=== PATIENT | male | born 1965 | race African-American/Black ===

== ENCOUNTER 2021-02-20 14:41 | Outpatient (CLI) | payer OTHER ==
[2021-02-21 01:55] LABS: SARS-CoV-2 PCR by NAA Not Detected (NotDetected)
== END 2021-02-20 14:42 | disposition home or self-care (01) ==
LOC: CSHLAB 14:41
PROVIDERS: ATTEND Internal Medicine Gastroenterology
DX: Z20.822 Contact with and (suspected) exposure to COVID-19 (principal); Z12.11 Encounter for screening for malignant neoplasm of colon
CPT/HCPCS: 87635; U0003; U0005

== ENCOUNTER 2021-02-22 07:43 | Day surgery (SDC) | payer OTHER ==
[2021-02-21 09:08] VITALS: BMI 33.6
[2021-02-22] MEDS ORDERED: Lidocaine 1% MPF 2 ML VIAL ONE (08:43)
[2021-02-22] MEDS ORDERED: Lidocaine 1% PF 5 ML VIAL ONE (09:37)
[2021-02-22] MEDS ORDERED: PROPOFOL 20 ML ONE ×3 (09:37→10:24)
== END 2021-02-22 11:30 | disposition home or self-care (01) ==
LOC: CSHSDC 07:43
PROVIDERS: ATTEND Internal Medicine Gastroenterology
DX: Z12.11 Encounter for screening for malignant neoplasm of colon (principal); D12.2 Benign neoplasm of ascending colon; D12.0 Benign neoplasm of cecum; D12.3 Benign neoplasm of transverse colon; K57.30 Diverticulosis of large intestine without perforation or abscess without bleeding
CPT/HCPCS: 88305; J2704

== ENCOUNTER 2021-09-20 15:39 | Outpatient (CLI) | payer OTHER ==
[2021-09-21 11:55] LABS: SARS-CoV-2 PCR by NAA Not Detected (NotDetected)
== END 2021-09-20 15:40 | disposition home or self-care (01) ==
LOC: CSHLAB 15:39
PROVIDERS: ATTEND Internal Medicine Gastroenterology
DX: Z01.812 Encounter for preprocedural laboratory examination (principal); Z20.822 Contact with and (suspected) exposure to COVID-19; K63.5 Polyp of colon
CPT/HCPCS: U0003; U0005

== ENCOUNTER 2021-09-24 06:22 | Day surgery (SDC) | payer OTHER ==
[2021-09-20 14:06] VITALS: BMI 33.8
[2021-09-24] MEDS ORDERED: Lidocaine 1% MPF 2 ML VIAL ONE (06:48)
[2021-09-24] MEDS ORDERED: PROPOFOL 40 ML ONE (07:39)
[2021-09-24] MEDS ORDERED: Lidocaine 1% PF 5 ML VIAL ONE (07:39)
[2021-09-24] MEDS ORDERED: PROPOFOL 20 ML ONE (08:08)
== END 2021-09-24 08:55 | disposition home or self-care (01) ==
LOC: CSHSDC 06:22
PROVIDERS: ATTEND Internal Medicine Gastroenterology
PROC: 0DBM8ZZ Excision of Descending Colon, Via Natural or Artificial Opening Endoscopic (ICD-10-PCS; principal; 2021-09-24)
PROC: 0W3P8ZZ Control Bleeding in Gastrointestinal Tract, Via Natural or Artificial Opening Endoscopic (ICD-10-PCS; principal; 2021-09-24)
PROC: 0DBL8ZZ Excision of Transverse Colon, Via Natural or Artificial Opening Endoscopic (ICD-10-PCS; principal; 2021-09-24)
PROC: 0DBN8ZZ Excision of Sigmoid Colon, Via Natural or Artificial Opening Endoscopic (ICD-10-PCS; principal; 2021-09-24)
DX: Z12.11 Encounter for screening for malignant neoplasm of colon (principal); D12.4 Benign neoplasm of descending colon; D12.3 Benign neoplasm of transverse colon; E78.5 Hyperlipidemia, unspecified; E11.22 Type 2 diabetes mellitus with diabetic chronic kidney disease; I12.9 Hypertensive chronic kidney disease with stage 1 through stage 4 chronic kidney disease, or unspecified chronic kidney disease; N18.9 Chronic kidney disease, unspecified; I69.951 Hemiplegia and hemiparesis following unspecified cerebrovascular disease affecting right dominant side
CPT/HCPCS: 36416; 88304; 88305; J2704

== ENCOUNTER 2023-09-01 11:05 | Day surgery (SDC) | payer OTHER ==
[2023-08-29 13:15] VITALS: BMI 25.8
[2023-09-01] MEDS ORDERED: PROPOFOL 60 ML ONE (12:08)
== END 2023-09-01 13:01 | disposition home or self-care (01) ==
LOC: CSHSDC 11:05
PROVIDERS: ATTEND Internal Medicine Gastroenterology
PROC: 0DB68ZZ Excision of Stomach, Via Natural or Artificial Opening Endoscopic (ICD-10-PCS; principal; 2023-09-01)
DX: K29.50 Unspecified chronic gastritis without bleeding (principal); K63.89 Other specified diseases of intestine; K31.89 Other diseases of stomach and duodenum; K31.7 Polyp of stomach and duodenum; R63.4 Abnormal weight loss; I10 Essential (primary) hypertension; E11.9 Type 2 diabetes mellitus without complications; E78.5 Hyperlipidemia, unspecified; G62.9 Polyneuropathy, unspecified; Z88.8 Allergy status to other drugs, medicaments and biological substances; Z79.899 Other long term (current) drug therapy; Z68.25 Body mass index [BMI] 25.0-25.9, adult
CPT/HCPCS: 36416; 88305; J2704